=== PATIENT | female | born 1990 | race Caucasian/White ===

== ENCOUNTER 2017-05-19 22:47 | Inpatient (IN) ==
[~2017-05-19 22:47] MED LIST: Famotidine 20 MG/2 ML VIAL IVP PRN; Naloxone 0.4 MG/ML INJ IVP PRN
--- NOTE | 2017-05-19 22:52 | OB/GYN History & Physical ---
Date of Encounter: 05/19/17 Time of Encounter: 22:49 Assessment and Plan (1) 41 weeks gestation of Current visit: Yes Status: Acute (2) Uterine contractions Current visit: Yes Status: Acute Plan to admit the patient at this time for spontaneous vaginal delivery. We will order external monitoring and consult to anesthesia for epidural History of Present Illness Chief complaint: Contractions HPI: Ms. Mcgarry is a 26 year old female at 41 weeks and 5 days presenting to the labor and delivery with chief complaint of active labor. Patient states all day she has been having regular contractions and the acutely got worse around 6 PM. She was concerned that her daughter also broke because she felt loss of liquid. Patient denies any vaginal bleeding. Patient is A+, GBS negative, HIV negative, treponema negative. No complications with this . Past Med Surg Social Fam HX - Past Medical History Medical history: asthma, cancer, RA Psychiatric history: no psych history - Past Surgical History Surgical History: cholecystectomy - Social History Smoking Status: Former smoker Smokeless Tobacco Status: No Alcohol use: none Drug use: none - Family History Mother Hx Family Cardiac Disorders: No Hx Family Respiratory Disorders: No Hx Family Cancer: Yes (MELANOMA) Hx Family GI Disorders: No Hx Family Genitourinary Disorders: No Hx Family Endocrine Disorder: No Hx Family Musculoskeletal Disorders: No Hx Family Neuromuscular Disorders: No Hx Family Neurologic Disorders: No Hx Family HEENT Disorders: No Hx Family Autoimmune Disorders: No Hx Family Reproductive Disorders: No Hx Family Psychosocial Disorders: No Hx Family Medical Disorders: No Obstetrical History - Pregnancies : 6 Para: 2 Term: 2 : 0 Ab's: 3 Livin Medications and Allergies Docosahexanoic Acid [Dha] 100 mg PO DAILY 04/07/17 [History] Pnv No.122/Iron/Folic Acid [ Multi Tablet] 1 each PO DAILY 04/07/17 [ History] 3 Allergy/AdvReac Type Severity Reaction Status Date / Time No Known Allergies Allergy Verified 04/07/17 01:06 Review of System OB All systems PM: reviewed and no additional remarkable complaints except as stated Exam - Constitutional Constitutional: well developed, well nourished, no acute distress, average body habitus - HEENT HEENT: Normocephaly, Mucus Membranes Moist - Neck Neck exam: full ROM, normal inspection - Lungs Respiratory exam: CTAB - Cardiovascular Cardiovascular exam: RRR - Abdomen Abdomen: Present: bowel sounds normal, gravid, non tender - Extremities Extremities exam: normal inspection - Cervix Dilation: 5 (Per nursing) Effacement: 100 Results Result Diagrams: 05/19/17 22:50 All other labs normal. - VTE Reasons for not Prescribing Prophylaxis: Treatment not Indicated - Low risk for VTE - Attending Attestation I examined this patient and my medical decision-making was reviewed with the Resident Physician. I agree with the documented findings, disposition and treatment plan as described except to the extent set forth below. Routine labor managment. Annie Alas CNM
[2017-05-19] MEDS ORDERED: Ringers Solution, Lactated 1,000 ML IVC SCH (23:00)
[2017-05-19 23:05] LABS: Basophils % 0.3 %; Eosinophils # 0.1 K/mcL (0.0-0.6); Eosinophils % 0.8 %; Hematocrit 37.1 % (35.3-44.9); Hemoglobin 12.2 g/dL (11.5-15.4); Immature Granulocytes % 0.7 % (0-4); Immature Platelets 7.5 % (1.1-6.1); Lymphocytes # 1.7 K/mcL (0.6-4.6); Lymphocytes % 14.7 %; Mean Corpuscular HGB Conc 32.9 g/dL (31.6-35.5); Mean Corpuscular Hemoglobin 30.6 pg (28.0-33.3); Mean Platelet Volume 10.6 fL (9.4-12.4); Monocytes # 0.6 K/mcL (0.0-1.3); Neutrophils # 9.2 K/mcL (1.6-8.9); Platelet Count 177 K/mcL (140-400); Red Blood Count 3.99 M/mcL (3.82-4.97); Red Cell Distribution Width 13.3 % (11.5-14.5); Segmented Neutrophils % 78.5 %
[2017-05-19] MEDS ORDERED: *HR* FentaNYL (PF) 100 MCG/2 ML VIAL EP ONE (23:18)
[2017-05-19] MEDS ORDERED: Bupivacaine-MPF 0.25% 10 ML VIAL EP ONE (23:18)
[2017-05-19] MEDS ORDERED: Bupivacaine-MPF 0.25% 10 ML VIAL ONE (23:21)
[2017-05-19] MEDS ORDERED: Epidural Premix (fent/bupiv) 110 ML EP ONE (23:21)
[2017-05-19] MEDS ORDERED: Oxytocin 20 units/ LR 1000 mL 20 UNIT/1,000 ML BAG IVC ONE (23:21)
[2017-05-19] MEDS ORDERED: *HR* FentaNYL (PF) 100 MCG/2 ML VIAL ONE (23:21)
[2017-05-19 23:25] LABS: Amphetamine Screen,Urine Negative ng/mL (Cutoff=1000); Barbiturate Screen,Urine Negative ng/mL (Cutoff=200); Benzodiazepines Screen,Urine Negative ng/mL (Cutoff=200); Cannabinoid Screen,Urine Negative ng/mL (Cutoff = 50); Cocaine Screen,Urine Negative ng/mL (Cutoff= 300); Opiate Screen,Urine Negative ng/mL (Cutoff=300); Phencyclidine Screen,Urine Negative ng/mL (Cutoff=25)
[2017-05-19] MEDS ORDERED: Epidural Premix (fent/bupiv) 110 ML EP SCH (23:30)
--- NOTE | 2017-05-20 00:42 | OB Labor Progress Note ---
Date of Encounter: 05/20/17 Time of Encounter: 00:39 Labor Progress Note - Subjective Subjective: Resting comfortably in bed - Vital Signs Vital Signs: VSS - Cervix Cervix: 7/90/0 - Heart Tones Heart Tones: 140-150 category I - [place]: 2-4 minutes - Interventions Interventions: AROM for moderate amount of light meconium stained fluid - Plan Plan: Continue routine labor management GBS negative Pain is well controlled Anticipate vaginal delivery POC per consult with Dr Ellis.
--- NOTE | 2017-05-20 00:54 | Anesthesia Evaluation PreOp ---
Date of Encounter: 05/20/17 Time of Encounter: 23:11 - Past History Planned Operation: labor epidural Cardiac History: Denies any Significant Hx Pulmonary History: Denies Any Significant HX INTERNATIONAL STUDENT ADVISOR History: Denies Any Significant HX Other Medical History: Denies Any Significant HX Anesthesia History: No Prior Anesthetic Complications Alcohol Use: none Drug use: none Medications and Allergies Docosahexanoic Acid [Dha] 100 mg PO DAILY 04/07/17 [History] Pnv No.122/Iron/Folic Acid [ Multi Tablet] 1 each PO DAILY 04/07/17 [ History] 3 Allergy/AdvReac Type Severity Reaction Status Date / Time No Known Allergies Allergy Verified 04/07/17 01:06 - Meds/Allergy Pre-op Review Medications Reviewed: Yes Allergies Reviewed: Yes Beta Blockers on Current Med List: No Anesthesia Results - Labs 05/19/17 22:50 Anesthesia Exam 132/64, 82, 16. FHTs 140s. Height: 4'10" Weight: 73 kg NPO (# of Hours): 4 Pain Scale: 10 Pain Scale Used: Numeric (1 - 10) - HEENT Pupil (Motor): Pupils equal Mallampati: II Teeth: Normal Oral Opening: Greater than 3 - INTERNATIONAL STUDENT ADVISOR LOC: Oriented INTERNATIONAL STUDENT ADVISOR Motor: Normal RUE, Normal LUE, Normal RLE, Normal LLE, Normal Face INTERNATIONAL STUDENT ADVISOR Sensory: Normal: RUE, LUE, RLE, LLE, Face - Cardiac Rhythm: Regular - Pulmonary Breath Sounds: bilateral Clear Respiratory Effort: Symmetrical Anesthesia Assess/Plan ASA Score: 2 Modified [place] Scale for Level of Consciousness: Cooperative, oriented, and tranquil Anesthetic Plan: Regional Monitoring Plan: Standard Monitors
--- NOTE | 2017-05-20 00:58 | Anesthesia Procedures ---
Date of Encounter: 05/20/17 Time of Encounter: 23:38 Procedures: Anesthesia - Epidural/Spinal Patient ID/Chart reviewed: Yes Patient examined: Yes OB Eval: Gestational age: 42 OB Eval: : 3 OB Eval: Hx Para: 2 OB Eval: Dilated at (cm): 7 OB Eval: Contractions: Non-stressed pattern Consent Obtained: Yes Supplemental Oxygen: None/Room Air Site Prep: Aseptic Technique, Sterile prep and drape, Povidone-Iodine 1% Patient position: upright Local Anesthetic: Lidocaine 1% Amount of Local Anesthetic used: 3 Touhy Needle Gauge: 18 Touhy Needle Depth (cm): 5 Catheter Depth at Skin (cm): 18 Test Dose (1.5% Lido + Epi): Volume given (mls): 3 Test Dose Result: Negative Loading Dose: 0.25% Marcaine (mls): 8 Loading Dose: Fentanyl (mcg): 100 Loading Dose Administered: Thru Catheter Infusion Med: 0.125% Bupivacaine w/ 2 mcg/ml Fentanyl (14) Infusion Rate (mls/hr): [address]: Tegaderm, Tape Interspace Used: L3-L4 Loss of Resistance (FLAQUITA): Yes Blood: No CSF: No Paresthesia: No Vitals + FHT's: 3 Vital Signs Time 2338 2340 2345 2350 BP 127/76 116/69 120/74 120/60 Pulse 84 89 76 89 FHTs 140 140 140 140
[2017-05-20] MEDS ORDERED: Sennosides 8.6 MG TABLET PO PRN ×2 (05:27→08:01)
[2017-05-20] MEDS ORDERED: Ibuprofen 600 MG TABLET PO PRN ×2 (05:27→08:01)
[2017-05-20] MEDS ORDERED: Acetaminophen 325 MG TABLET PO PRN ×2 (05:27→08:01)
[2017-05-20] MEDS ORDERED: Oxytocin 20 units/ LR 1000 mL 20 UNIT/1,000 ML BAG IVC SCH ×2 (05:30→08:01)
--- NOTE | 2017-05-20 05:34 | OB/GYN Procedure Note ---
Delivery - Delivery Date: 05/20/17 Provider: Agatha Alas (Dr Frey PGY-1 assist) Intrapartum events: none Delivery induction: none Delivery monitor: external FHT, external uterine Anesthesia: epidural Estimated Blood Loss: 200 - Infant (s) Infant A Infant Delivery Date: 05/20/17 Delivery Time: 05:12 Presentation: vertex Position: OA Route of delivery: Gender: Female Viability: Viable Pounds: 7 Ounces: 9 Weight Gram: 3.43 kg at 1 minute: 8 at 5 mins: 9 Shoulder Dystocia: not encountered Placenta: spontaneous Cord: 3 umbilical vessels - Repair Episiotomy: none Laceration Description: None - Complications Delivery complications: none Delivery comments: Patient progressed to complete and began pushing. Patient pushed to of viable, vigorous, female in the OA position over an intact perineum. No nuchal, and no shoulder dystocia encountered. Light stained meconium encountered. Infant placed on maternal abdomen. Cord double clamped and cut when pulsations ceased. Apgars 8 and 9 at 1 and 5 minutes of age. Placenta delivered spontaneously and appears grossly intact with 3 vessel cord. Upon perineal inspection, there are no lacerations noted. EBL 200. Mother and infant stable in recovery. Dr Frey PGY-[address] Ellis notified. - Disposition Mom disposition: stable in LDR [place] disposition: stable in LDR
[2017-05-20] MEDS ORDERED: Famotidine 20 MG/2 ML VIAL IVP PRN (08:01)
[2017-05-20] MEDS ORDERED: Naloxone 0.4 MG/ML INJ IVP PRN (08:01)
[2017-05-20] MEDS ORDERED: Ringers Solution, Lactated 1,000 ML IVC SCH (08:01)
[2017-05-20] MEDS ORDERED: Prenatal Vit/FA 1 EACH TABLET PO SCH ×2 (09:00)
[2017-05-20] MEDS ORDERED: Lanolin 7 G OINT...G. TP PRN (20:16)
[2017-05-21 04:44] LABS: Basophils % 0.2 %; Eosinophils # 0.1 K/mcL (0.0-0.6); Eosinophils % 0.9 %; Hematocrit 33.5 % (35.3-44.9); Hemoglobin 10.9 g/dL (11.5-15.4); Immature Granulocytes % 0.6 % (0-4); Lymphocytes # 1.8 K/mcL (0.6-4.6); Lymphocytes % 18.2 %; Mean Corpuscular HGB Conc 32.5 g/dL (31.6-35.5); Mean Corpuscular Hemoglobin 30.7 pg (28.0-33.3); Mean Corpuscular Volume 94.4 fL (83.0-100.0); Mean Platelet Volume 10.6 fL (9.4-12.4); Monocytes # 0.6 K/mcL (0.0-1.3); Monocytes % 6.3 %; Neutrophils # 7.2 K/mcL (1.6-8.9); Platelet Count 142 K/mcL (140-400); Red Blood Count 3.55 M/mcL (3.82-4.97); Red Cell Distribution Width 13.4 % (11.5-14.5); Segmented Neutrophils % 73.8 %
[2017-05-21 07:49] VITALS: BP 118/85
--- NOTE | 2017-05-21 10:36 | Discharge Summary ---
Date of Encounter: 05/21/17 Time of Encounter: 10:32 - Discharge Diagnosis (1) Vaginal delivery Priority: Primary Status: Acute Comments: Patient with no complaints this AM. Pain well controlled. [place] lightened. Eating and drinking without difficulty. Voiding well without difficulty. BM with no complications. (2) Mother currently breast-feeding Priority: Secondary Status: Acute Comments: without difficulty. Will provide RX for breast pump - Discharge Medications Prescriptions: Ibuprofen [Motrin] 600 mg PO Q6HR PRN #30 tablet PRN Reason: Cramping Breast Pump [BREAST PUMP] 1 each .ROUTE AD #1 each Docusate [Colace] 100 mg PO BID #20 capsule Pnv No.122/Iron/Folic Acid [ Multi Tablet] 1 each PO DAILY #30 tablet Home Medications: Breast Pump [BREAST PUMP] 1 each .ROUTE AD #1 each 05/21/17 [Rx] Docusate [Colace] 100 mg PO BID #20 capsule 05/21/17 [Rx] Ibuprofen [Motrin] 600 mg PO Q6HR PRN #30 tablet 05/21/17 [Rx] Pnv No.122/Iron/Folic Acid [ Multi Tablet] 1 each PO DAILY #30 tablet [Rx] Allergies/Adverse Reactions: 3 Allergy/AdvReac Type Severity Reaction Status Date / Time No Known Allergies Allergy Verified 04/07/17 01:06 Data Procedures and tests throughout hospitalization: Laboratory Tests 05/19/17 05/19/17 05/21/17 22:50 23:00 04:17 WBC 11.8 H 9.7 RBC 3.99 3.55 L Hgb 12.2 10.9 L Hct 37.1 33.5 L MCV 93.0 94.4 MCH 30.6 30.7 MCHC 32.9 32.5 RDW 13.3 13.4 Plt Count 177 142 MPV 10.6 10.6 Immature Gran % 0.7 0.6 Seg Neutrophils % 78.5 73.8 Lymphocytes % 14.7 18.2 Monocytes % 5.0 6.3 Eosinophils % 0.8 0.9 Basophils % 0.3 0.2 Neutrophils # 9.2 H 7.2 Lymphocytes # 1.7 1.8 Monocytes # 0.6 0.6 Eosinophils # 0.1 0.1 Basophils # 0.0 0.0 Immature Plt Fraction 7.5 H Urine Opiates Screen Negative Ur Barbiturates Screen Negative Ur Phencyclidine Scrn Negative Ur Amphetamines Screen Negative U Benzodiazepines Scrn Negative Urine Cocaine Screen Negative U Marijuana (THC) Screen Negative Labs on day of discharge: Labs from last 24 hours 05/21/17 04:17 WBC 9.7 RBC 3.55 L Hgb 10.9 L Hct 33.5 L MCV 94.4 MCH 30.7 MCHC 32.5 RDW 13.4 Plt Count 142 MPV 10.6 Immature Gran % 0.6 Seg Neutrophils % 73.8 Lymphocytes % 18.2 Monocytes % 6.3 Eosinophils % 0.9 Basophils % 0.2 Neutrophils # 7.2 Lymphocytes # 1.8 Monocytes # 0.6 Eosinophils # 0.1 Basophils # 0.0 Date of admission: 05/19/17 22:47 Primary care physician: PCP NONE Consults: 05/20/17 05:27 Consult to Pellet Post Inspector [CONS] Routine Comment: Vaginal delivery, consult needed Discharging clinician: Kiley Gibbs Anticipated date of discharge: 05/21/17 - Patient Status Disposition: Home, Self-Care Condition: Good Functional capacity at discharge: independent ambulation Overall status at discharge: patient is back to baseline - Discharge Instructions Follow Up With: FILENET ARCHITECT Alida [Provider Group] - Diet and Activity Activity: increase activity as tolerated Diet: advance to your usual diet Hospital Course Episiotomy: none Hospital course: - Delivery Date: 05/20/17 Provider: Agatha Alas (Dr Frey PGY-1 assist) Intrapartum events: none Delivery induction: none Delivery monitor: external FHT, external uterine Anesthesia: epidural Estimated Blood Loss: 200 - Infant (s) Infant A Delivery Date: 05/20/17 Infant Delivery Time: 05:12 Presentation: vertex Position: OA Route of delivery: Gender: Female Viability: Viable Pounds: 7 Ounces: 9 Weight Gram: 3.43 kg at 1 minute: 8 at 5 mins: 9 Shoulder Dystocia: not encountered Placenta: spontaneous Cord: 3 umbilical vessels - Repair Episiotomy: none Laceration Description: None - Complications Delivery complications: none Delivery comments: Patient progressed to complete and began pushing. Patient pushed to of viable, vigorous, female infant in the OA position over an intact perineum. No nuchal, and no shoulder dystocia encountered. Light stained meconium encountered. Infant placed on maternal abdomen. Cord double clamped and cut when pulsations ceased. Apgars 8 and 9 at 1 and 5 minutes of age. Placenta delivered spontaneously and appears grossly intact with 3 vessel cord. Upon perineal inspection, there are no lacerations noted. EBL 200. Mother and infant stable in recovery. Dr Frey PGY-[address] Ellis notified. Time Attestation: Total time spent providing and/or coordinating discharge services: Exam - Constitutional Vitals: Temp Pulse Resp BP Pulse Ox 98.0 F 73 18 118/85 94 05/21/17 07:48 05/21/17 07:48 05/21/17 07:48 05/21/17 07:48 05/21/17 07:48 General appearance IM: A&O X 3, no acute distress - Respiratory Respiratory exam: Present: CTAB - Cardiovascular Cardiovascular exam IM: Present: RRR - GI/Abdominal GI/Abdominal exam IM: soft - Uterine Tone: Firm Uterus Position: At Umbilicus - Extremities Exam Extremities exam IM: Present: normal capillary refill, normal inspection - Neurological Exam Neurological exam: oriented X3, no focal deficits - Attending Attestation I have seen this patient in addition to the resident physician and I agree with the assessment and plan as outlined.
== END 2017-05-21 11:50 | disposition home or self-care (01) | DRG 560 ==
LOC: 1NENULAB → 1NENUOBS 05-20 07:59
PROVIDERS: ADMIT Advanced Practice Midwife; ATTEND Advanced Practice Midwife